=== PATIENT | male | born 1970 | race Caucasian/White ===

== ENCOUNTER → 2018-06-30 | Outpatient (CLI) | payer OTHER ==
[~2018-06-30] MED LIST: ACET325T14 PO; ASPI81TA50 PO; CEFU500T PO; DIGO250T PO; FOLI-17 PO; FURO-92 PO; FURO20TA3 PO; LEVO750T26 PO; LISI-167 PO; METO-95 PO; METO25TA35 PO; POTA20PA31 PO; PRAV40TA2 PO; RIVA20TA PO; SPIR25TA PO; THIA100T10 PO
== END | disposition home or self-care (01) ==
LOC: CFH 10:58
PROVIDERS: ATTEND Internal Medicine Cardiovascular Disease
DX: I11.9 Hypertensive heart disease without heart failure (principal); E78.5 Hyperlipidemia, unspecified
CPT/HCPCS: 93306